=== PATIENT | female | born 1955 | race African-American/Black ===

== ENCOUNTER 2018-04-03 10:13 | Emergency (ER) | payer MEDICARE, MEDICAID ==
--- NOTE | 2018-04-03 12:08 | RAD ---
3 VIEWS RIGHT SHOULDER: Date: 04/03/18 COMPARISON: None. HISTORY: Right shoulder pain for 2 months. FINDINGS: Three views of the right shoulder show no evidence of acute fracature or dislocation. No degenerative changes are seen. Visualized right thorax is unremarkable. IMPRESSION: Unremarkable exam. POS: [facility]
== END 2018-04-03 12:06 | disposition home or self-care (01) ==
LOC: ERS 10:13
DX: S46.911A Strain of unspecified muscle, fascia and tendon at shoulder and upper arm level, right arm, initial encounter (principal); I10 Essential (primary) hypertension; F17.200 Nicotine dependence, unspecified, uncomplicated; Z71.6 Tobacco abuse counseling; X58.XXXA Exposure to other specified factors, initial encounter

== ENCOUNTER 2018-08-17 14:51 | Emergency (ER) | payer MEDICARE, MEDICAID ==
[2018-08-17 15:42] LABS: #Eosinphils 0.1 thou/uL (0.0-0.7); #Lymphocytes 1.5 thou/uL (1.20-3.40); #Monocytes 0.4 thou/uL (0.11-0.59); #Neutrophils 10.6 thou/uL (1.40-6.50); %Basophils 0.2 % (0.0-1.0); %Eosinophils 0.7 % (0.0-10.0); %Monocytes 3.1 % (0.0-10.0); Hemoglobin 13.4 g/dL (12.0-16.0); Mean Corpuscular HGB CONC 35.1 g/dL (32.0-36.0); Mean Corpuscular Hemoglobin 29.5 pg (27.0-31.0); Mean Corpuscular Volume 84.1 fL (78.0-98.0); Mean Platelet Volume 7.6 fL (7.4-10.4); Platelet Count 266 thou/uL (130-400); RBC Distribution Width 12.3 % (11.5-14.5); Red Blood Cell (RBC) Count 4.55 mill/uL (4.20-5.40); White Blood Cell (WBC) Count 12.7 thou/uL (4.8-10.8)
--- NOTE | 2018-08-17 15:52 | RAD ---
CHEST 2 VIEWS: Date: 08/17/11 HISTORY: Cough. COMPARISON: None. FINDINGS: Lungs are clear. No pneumothorax or effusion. Cardiac silhouette and mediastinal contours within norm al limits. IMPRESSION: No acute intrathoracic abnormality. POS: [facility]
[2018-08-17 16:06] LABS: CKMB 0.5 ng/mL (0-6.6); Troponin I Less than 0.010 ng/mL (< 0.028)
[2018-08-17 16:08] LABS: ALT (SGPT) 18 U/L (8-55); AST (SGOT) 17 U/L (5-34); Albumin 4.7 g/dL (3.4-4.8); Alkaline Phosphatase 118 U/L (40-150); Anion Gap 13 mmol/L (10-20); BUN (Urea Nitrogen) 15 mg/dL (9.8-20.1); Bilirubin, Total 0.8 mg/dL (0.2-1.2); Calc. Creatinine Clearance 0 mL/min (70-130); Calcium 10.7 mg/dL (7.8-10.44); Carbon Dioxide 26 mmol/L (23-31); Chloride 101 mmol/L (98-107); Estimated GFR-MDRD 83; Glucose 161 mg/dL (80-115); Potassium 3.4 mmol/L (3.5-5.1); Protein, Total 8.7 g/dL (6.0-8.3); Sodium 137 mmol/L (136-145)
[2018-08-17] MEDS ORDERED: Ketorolac Tromethamine 30 MG/ML VIAL ONE (16:11)
[2018-08-17 17:27] LABS: Bilirubin Negative (Negative); Blood, Urine Trace (Negative); Clarity CLEAR (Clear); Glucose, Urine (Dipstick) Negative (Negative); Leukocyte Negative (Negative); Nitrite Negative (Negative); Protein, Urine (Dipstick) Negative (Neg-Trace)
[2018-08-17 17:30] LABS: Bacteria/HPF None Seen HPF (None Seen); Hyaline Casts/LPF 0-3 HYALINE CAST LPF (0-3 Hyaline); Pathc Cast-AUWi Flag 0.14 (0-2.49); Squamous Epithelial 0-3 HPF (0-3); WBC/HPF None Seen HPF (0-3)
== END 2018-08-17 18:21 | disposition home or self-care (01) ==
LOC: ERS 14:51
DX: B34.9 Viral infection, unspecified (principal); I10 Essential (primary) hypertension; F17.210 Nicotine dependence, cigarettes, uncomplicated
CPT/HCPCS: 71046; 80053; 81003; 81015; 82553; 83880; 84484; 85025; 87804; 94640; 96361; 96374; J1885

== ENCOUNTER 2020-02-09 14:59 | Emergency (ER) | payer MEDICARE, MEDICAID, OTHER ==
--- NOTE | 2020-02-09 15:58 | RAD ---
Exam: Chest one view HISTORY:Chest pain. Cough. Comparison: 08/04/2005, 08/17/2018 FINDINGS: Cardiac silhouette: Normal Aorta: Unremarkable Pulmonary vessels: Normal Costophrenic angles: Clear LUNGS: No masses or consolidation. Pneumothorax: None Osseous abnormalities: None IMPRESSION: No acute cardiopulmonary process.
[2020-02-10 12:06] LABS: SARS-CoV-2 MS2 Positive; SARS-CoV-2 N Gene Positive; SARS-CoV-2 S Gene Positive; SARS-CoV-2 orf1ab Positive
== END 2020-02-09 16:10 | disposition home or self-care (01) ==
LOC: ERS 14:59
DX: U07.1 COVID-19 (principal); J06.9 Acute upper respiratory infection, unspecified; I10 Essential (primary) hypertension; F17.210 Nicotine dependence, cigarettes, uncomplicated
CPT/HCPCS: 71045; 87081; 87430; 87804 ×2; 99283; U0002; 87635; U0003

== ENCOUNTER 2020-02-11 18:42 | Observation (INO) | payer MEDICARE, MEDICAID, OTHER ==
[2020-02-11 19:24] LABS: #Lymphocytes 1.7 thou/uL (1.20-3.40); #Monocytes 0.3 thou/uL (0.11-0.59); #Neutrophils 3.6 thou/uL (1.40-6.50); %Basophils 0.4 % (0.0-1.0); %Eosinophils 0.1 % (0.0-10.0); %Lymphocytes 29.4 % (21.0-51.0); %Monocytes 5.4 % (0.0-10.0); %Neutrophils 64.8 % (42.0-75.0); Hemoglobin 12.5 g/dL (12.0-16.0); Mean Corpuscular HGB CONC 33.3 g/dL (32.0-36.0); Mean Corpuscular Hemoglobin 27.9 pg (27.0-31.0); Mean Corpuscular Volume 83.6 fL (78.0-98.0); Mean Platelet Volume 8.5 fL (7.4-10.4); Platelet Count 227 thou/uL (130-400); RBC Distribution Width 12.9 % (11.5-14.5); Red Blood Cell (RBC) Count 4.49 mill/uL (4.20-5.40); White Blood Cell (WBC) Count 5.6 thou/uL (4.8-10.8)
[2020-02-11] MEDS ORDERED: Acetaminophen 500 MG TAB ONE (19:30)
[2020-02-11 19:32] LABS: Lactic Acid 1.5 mmol/L (0.5-2.2)
[2020-02-11 19:45] LABS: ALT (SGPT) 16 U/L (8-55); AST (SGOT) 23 U/L (5-34); Albumin 4.5 g/dL (3.4-4.8); Alkaline Phosphatase 133 U/L (40-110); Anion Gap 15 mmol/L (10-20); BUN (Urea Nitrogen) 6 mg/dL (9.8-20.1); Bilirubin, Total 0.6 mg/dL (0.2-1.2); Calc. Creatinine Clearance 0 mL/min (70-130); Calcium 9.7 mg/dL (7.8-10.44); Carbon Dioxide 25 mmol/L (23-31); Chloride 99 mmol/L (98-107); Estimated GFR-MDRD 74; Globulin 4.1 g/dL (2.4-3.5); Glucose 166 mg/dL (80-115); Protein, Total 8.6 g/dL (6.0-8.3); Sodium 136 mmol/L (136-145)
--- NOTE | 2020-02-11 19:46 | RAD ---
CHEST ONE VIEW: 02/11/20 HISTORY: Cough and shortness of breath. COMPARISON: Radiograph 02/09/2020. FINDINGS: Faint peripheral increased patchy opacities. No pneumothorax. No effusion. Heart size upper limits of normal. No acute osseous abnormality. IMPRESSION: Commonly reported imaging findings of COVID-19 pneumonia, very mild. POS: [facility]
[2020-02-11 19:47] LABS: Potassium 2.8 mmol/L (3.5-5.1)
[2020-02-11 20:10] LABS: CKMB 0.3 ng/mL (0-6.6)
[2020-02-11] MEDS ORDERED: Potassium Chloride 20 MEQ TAB ONE (21:29)
[2020-02-11] MEDS ORDERED: Azithromycin 250 MG TAB ONE (21:29)
[2020-02-11] MEDS ORDERED: Aspirin Chewable 81 MG TAB ONE (21:29)
[2020-02-11] MEDS ORDERED: Hydroxychloroquine Sulfate 200 MG TAB PO SCH (21:30)
--- NOTE | 2020-02-11 22:11 | PDOC.FPRHP ---
- History of Present Illness Chief Complaint: Cough, Indeterminent troponin History of Present Illness: Pt is a 65 yo F w/ PMH of CAD and HTN who presents to ED for CC of some mild cp and cough. She was seen two days prior with one week history of dry cough and was otherwise well. She was screened for COVID19 at that time and she has resulted positive. In ED her vital signs are stable less her temp of 102.5. Initial lab evaluation shows mildly elevated troponin. Otherwise she reports mild dry cough and some chest discomfort that has resolved with tylenol. She currently denies any chest pain. She also reports some associated diarrhea. ED Course: Potassium, Plaquenil, and azithromycin - Allergies/Adverse Reactions Allergies Allergy/AdvReac Type Severity Reaction Status Date / Time Penicillins Allergy Verified 02/11/20 23:29 Sulfa (Sulfonamide Allergy Verified 02/11/20 23:29 Antibiotics) - Home Medications Medication Instructions Recorded Confirmed Type Azithromycin 250 mg PO DAILY 02/11/20 02/11/20 History Irbesartan/Hydrochlorothiazide 1 each PO DAILY 02/11/20 02/11/20 History [Irbesartan-Hctz 300-12.5 mg Tb] Multivitamin [Multivitamins] 1 cap PO DAILY 02/11/20 02/11/20 History Pregabalin 50 mg PO DAILY 02/11/20 02/11/20 History Rosuvastatin [Crestor] 20 mg PO DAILY 02/11/20 02/11/20 History Ventolin HFA Inhaler 2 puff INH QID PRN 02/11/20 02/11/20 History Benzonatate [Tessalon] 100 mg PO TIDPRN PRN #60 cap 02/12/20 Rx Guaifenesin DM 100-10 [Robitussin 15 ml PO Q4H PRN #120 ml 02/12/20 Rx DM] - History PMHx: HTN PSHx: Hyster FHx: None Social: Denies alcohol tobacco and drug use - Review of Systems General: reports: fever/chills, fatigue Eyes: denies: eye pain, vision changes ENT: reports: nasal congestion. denies: rhinorrhea Respiratory: reports: cough, congestion. denies: shortness of breath Cardiovascular: reports: chest pain. denies: palpitation, edema Gastrointestinal: denies: nausea, vomiting, diarrhea, constipation, abdominal pain Genitourinary: denies: dysuria Skin: denies: rashes Musculoskeletal: denies: swelling Neurological: denies: numbness, syncope, weakness Psychological: denies: anxiety - Vital signs BP: 161/100 HR: 92 RR: 20 Tmax: 102.5 Pox: 98% on RA Wt: 61.23Kg - Physical Exam Constitutional: NAD, awake, alert and oriented, well developed HEENT: normocephalic and atraumatic, PERRLA, EOMI, conjunctiva clear, grossly normal vision, grossly normal hearing Neck: supple, FROM, trachea midline, no LAD Chest: no-tender to palpation Heart: RRR, normal S1/S2, no murmurs/rubs/gallops, pulses present, no edema Lungs: CTAB, no respiratory distress, good air movement, no rales/rhonchi, no wheezing, no retractions Abdomen: soft, non-tender, bowel sounds present, no masses/distention Neurological: no focal deficit Skin: no rash/lesions, good turgor, capillary refill <2 seconds Heme/Lymphatic: no petechia Psychiatric: normal mood and affect FMR H&P: Results - Labs Result Diagrams: 02/12/20 04:39 02/12/20 04:39 Lab results: WBC 5.6 thou/uL (4.8-10.8) 02/11/20 19:11 Hgb 12.5 g/dL (12.0-16.0) 02/11/20 19:11 Hct 37.5 % (36.0-47.0) 02/11/20 19:11 MCV 83.6 fL (78.0-98.0) 02/11/20 19:11 Plt Count 227 thou/uL (130-400) 02/11/20 19:11 Neutrophils % 64.8 % (42.0-75.0) 02/11/20 19:11 Sodium 136 mmol/L (136-145) 02/11/20 19:11 Potassium 2.8 mmol/L (3.5-5.1) L* 02/11/20 19:11 Chloride 99 mmol/L (98-107) 02/11/20 19:11 Carbon Dioxide 25 mmol/L (23-31) 02/11/20 19:11 BUN 6 mg/dL (9.8-20.1) L 02/11/20 19:11 Creatinine 0.92 mg/dL (0.6-1.1) 02/11/20 19:11 Glucose 166 mg/dL (80-115) H 02/11/20 19:11 Lactic Acid 1.5 mmol/L (0.5-2.2) 02/11/20 19:11 Calcium 9.7 mg/dL (7.8-10.44) 02/11/20 19:11 Total Bilirubin 0.6 mg/dL (0.2-1.2) 02/11/20 19:11 AST 23 U/L (5-34) 02/11/20 19:11 ALT 16 U/L (8-55) 02/11/20 19:11 Alkaline Phosphatase 133 U/L (40-110) H 02/11/20 19:11 CK-MB (CK-2) 0.3 ng/mL (0-6.6) 02/11/20 19:11 Serum Total Protein 8.6 g/dL (6.0-8.3) H 02/11/20 19:11 Albumin 4.5 g/dL (3.4-4.8) 02/11/20 19:11 - EKG Interpretation EK BPM, t wave inversion inferior leads, No ST changes - Radiology Interpretation Chest x-ray Status: image reviewed by me, report reviewed by me (Changes c/w covid, mild) FMR H&P: A/P - Problem List (1) COVID-19 virus infection Status: Acute Code(s): U07.1 - COVID-19 (2) Elevated troponin Status: Acute Code(s): R79.89 - OTHER SPECIFIED ABNORMAL FINDINGS OF BLOOD CHEMISTRY (3) Hypertension Status: Acute Code(s): I10 - ESSENTIAL (PRIMARY) HYPERTENSION - Plan 1) COVID Pna - check inflammatory markers - cont azithromycin - cosnider continuing plaquenil, although no mod to severe criteria currently met - monitor vitals - supportive care with tylenol for fever and albuterol PRN for wheezing alongside cough suppresent PO 2) Indeterminant troponins - no chest pain at this time - trend - likely trop leak from systemic illness - consider OP stress when illness resolves 3) Hypokalemia - replace - check mag Dispo: Stable, admit tele obs and trend trops. Monitor for worsening resp status. Cont Supportive care. FMR H&P: Upper Level - Plan Date/Time: 02/11/202208 Upper Level H&P Addendum - Attending - Attending Attestation Date/Time: 02/15/201803 I personally evaluated the patient and discussed the management with Dr. Fermin on 02/11/20. I agree with the History, Examination, Assessment and Plan documented above with any addition or exceptions noted below. 65 y.o. BF with h/o HTN, recent COVID positive here with cough and mild CP found to have indeterminate troponin. Will R/o IA. Pt. states she's not had any contacts and has only communicated with family through her screen door, so not sure how she contracted COVID. SaO2 on RA>95% and no dyspnea but dry cough persists.
[2020-02-11 23:19] VITALS: BMI 26.7
[2020-02-11 23:45] LABS: Troponin I 0.027 ng/mL (< 0.028)
[2020-02-12] MEDS ORDERED: Non-Formulary Item 1 EACH (Ventolin Hfa Inhaler [Ventolin Hfa Inhaler] 2 PUFF) INH PRN (00:27)
[2020-02-12] MEDS ORDERED: Acetaminophen 325 MG TAB PO PRN (00:28)
[2020-02-12] MEDS ORDERED: Ondansetron PF 4 MG/2 ML Vial IVP PRN (00:28)
[2020-02-12] MEDS ORDERED: Ondansetron ODT 4 MG TAB PO PRN (00:28)
[2020-02-12] MEDS ORDERED: Guaifenesin DM 100-10/5 ML UDCUP PO PRN (00:28)
[2020-02-12] MEDS ORDERED: Calcium Carbonate 500 MG ChewTAB PO PRN (00:28)
[2020-02-12] MEDS ORDERED: Acetaminophen 650 MG Suppository PR PRN (00:28)
[2020-02-12] MEDS ORDERED: Benzonatate 100 MG CAP PO PRN (00:35)
[2020-02-12] MEDS ORDERED: Potassium Chloride 20 MEQ TAB PO SCH ×2 (00:45→08:00)
[2020-02-12] MEDS ORDERED: Albuterol 200 PUFF (6.7GM INHALER) INH PRN (00:54)
[2020-02-12 04:56] LABS: #Lymphocytes 1.6 thou/uL (1.20-3.40); #Monocytes 0.4 thou/uL (0.11-0.59); #Neutrophils 3.7 thou/uL (1.40-6.50); %Basophils 0.8 % (0.0-1.0); %Eosinophils 0.2 % (0.0-10.0); %Lymphocytes 27.2 % (21.0-51.0); %Monocytes 6.8 % (0.0-10.0); %Neutrophils 65.1 % (42.0-75.0); Hemoglobin 11.6 g/dL (12.0-16.0); Mean Corpuscular HGB CONC 34.1 g/dL (32.0-36.0); Mean Corpuscular Hemoglobin 28.3 pg (27.0-31.0); Mean Corpuscular Volume 83.1 fL (78.0-98.0); Mean Platelet Volume 8.6 fL (7.4-10.4); Platelet Count 201 thou/uL (130-400); Red Blood Cell (RBC) Count 4.11 mill/uL (4.20-5.40); White Blood Cell (WBC) Count 5.7 thou/uL (4.8-10.8)
[2020-02-12 05:14] LABS: Anion Gap 12 mmol/L (10-20); BUN (Urea Nitrogen) 7 mg/dL (9.8-20.1); CRP (Inflammatory) 2.51 mg/dL (= or < 0.5); Calc. Creatinine Clearance 66 mL/min (70-130); Calcium 9.3 mg/dL (7.8-10.44); Carbon Dioxide 26 mmol/L (23-31); Chloride 106 mmol/L (98-107); Estimated GFR-MDRD 83; Glucose 167 mg/dL (80-115); Magnesium 1.8 mg/dL (1.6-2.6); Potassium 4.2 mmol/L (3.5-5.1); Sodium 140 mmol/L (136-145)
--- NOTE | 2020-02-12 07:00 | PDOC.FM ---
- Subjective Subjective: NAEO. Patient was resting comfortably in bed. She states that her SOB and cough have improved. She reports no other episodes of chest pain. She states she would feel ready to go home later today. - Objective MAR Reviewed: Yes Vital Signs & Weight: Vital Signs (12 hours) Temp Pulse Resp BP Pulse Ox 02/12/20 04:00 97.7 F 61 18 157/72 H 99 02/11/20 22:42 98.9 F 67 22 H 137/100 H 97 Weight Weight 62.051 kg I&O: 02/10/20 02/11/20 02/12/20 06:59 06:59 06:59 Intake Total 820 Output Total 350 Balance 470 Result Diagrams: 02/12/20 04:39 02/12/20 04:39 Phys Exam - Physical Examination Constitutional: NAD HEENT: moist MMs, sclera anicteric Neck: supple, full ROM Respiratory: clear to auscultation bilateral Cardiovascular: RRR Gastrointestinal: soft Musculoskeletal: no edema Neurological: non-focal, moves all 4 limbs Psychiatric: normal affect Skin: no rash, normal turgor, cap refill <2 seconds Dx/Plan (1) COVID-19 virus infection Code(s): U07.1 - COVID-19 Status: Acute (2) Elevated troponin Code(s): R79.89 - OTHER SPECIFIED ABNORMAL FINDINGS OF BLOOD CHEMISTRY Status : Acute (3) Hypertension Code(s): I10 - ESSENTIAL (PRIMARY) HYPERTENSION Status: Acute - Plan Plan: COVID PNA Patient with positive test 2 days ago. Symptoms of chest pain/SOB. - Elevated LDH, CRP, Ddimer, ferritin - Continue azithromycin; Plaquenil discontinued as no mod to severe criteria currently met - On ppx lovenox - Monitor vitals, satting well on RA, not requiring supplemental oxygen - Supportive care with tylenol for fever and albuterol PRN for wheezing with cough suppressant PO. Avoid NSAIDs. Indeterminant troponins No chest pain at this time. Likely Trop leak from systemic illness. Chest pain at home likely due to chronic cough associated with PNA. - Initial Trop 0.032 -> 0.027 -> 0.03 -> 0.027. - Nitro PRN - Consider OP stress when illness resolves and if symptoms persist Hypokalemia - K 2.8 on admission -> 4.2, Continue to monitor, replace as needed Dispo: Stable, dc later today PCP: [id number] - [facility] DVT: lovenox Code: FULL Case discussed with Dr. Mcknight Addendum - Attending - Attending Attestation Date/Time: 02/12/20 [id number] I personally evaluated the patient and discussed the management with Dr. Wan I agree with the History, Examination, Assessment and Plan documented above with any addition or exceptions noted below - Patient without complaints. Denies any SOB. Cough improved. Afebrile VSS. A/P: 1) Chest pain- troponins negative; suspect pain is related to the cough. 2) COVID-19 - no O2 requirement ; mild symptoms. Plan to D/c home if continues t do well.
[2020-02-12] MEDS ORDERED: Pregabalin 50 MG CAP PO SCH (09:00)
[2020-02-12] MEDS ORDERED: Hydrochlorothiazide 25 MG TAB PO SCH (09:00)
[2020-02-12] MEDS ORDERED: Multivit, Therapeutic 1 TAB PO SCH (09:00)
[2020-02-12] MEDS ORDERED: Prevnar 13-Val Conj/PF 0.5 ML SYRINGE IM ONE (09:00)
[2020-02-12] MEDS ORDERED: Azithromycin 250 MG TAB PO SCH (09:00)
[2020-02-12] MEDS ORDERED: Enoxaparin Sodium 40 MG/0.4 ML SYRINGE SC SCH (09:00)
[2020-02-12] MEDS ORDERED: Losartan 25 MG TAB PO SCH (09:00)
[2020-02-12 12:30] VITALS: BP 173/85; TEMP 98.7
--- NOTE | 2020-02-13 06:00 | DIS ---
DATE OF ADMISSION: 02/11/2020 DATE OF DISCHARGE: 02/12/2020 RESIDENT: Karly Wan MD ADMITTING ATTENDING: Raman Rinaldi MD DISCHARGE ATTENDING: Petra Mcknight MD CONSULTS: None. PROCEDURES: None. DISCHARGE MEDICATIONS: 1. Tessalon 100 mg oral 3 times daily as needed. 2. Robitussin 15 mL oral every 4 hours as needed. 3. Multivitamin one capsule oral daily. 4. Ventolin 2 puffs inhalation 4 times daily as needed. 5. Pregabalin 50 mg oral daily. 6. Irbesartan/hydrochlorothiazide 300-12.5 mg one each oral daily. 7. Crestor 20 mg oral daily. 8. Azithromycin 250 mg oral daily for 4 more doses. DISCONTINUED MEDICATIONS: None. PRIMARY DIAGNOSES: 1. COVID pneumonia. 2. Indeterminate troponins. 3. Hypokalemia. SECONDARY DIAGNOSES: 1. CAD 2. HTN HISTORY OF PRESENT ILLNESS/HOSPITAL COURSE: This is a 65-year-old female with past medical history of CAD and hypertension, who presented to the ER with a chief complaint of mild chest pain and cough. She had been seen 2 days prior with a 1-week history of a dry cough, but was otherwise well. She was screened for COVID-19 at that time and had resulted positive. In the ER, the patient was given potassium, Plaquenil, and azithromycin for COVID pneumonia. She never required any supplemental oxygen. The patient was admitted to the telemetry floor as her troponins were found to be mildly elevated. The patient was also found to have a fever of 102.5 in the ER and was given Tylenol with resolution of fever. The patient also had a potassium of 2.8 and was given supplementation. EKG showed no changes. The patient was continued on her azithromycin for treatment of her COVID pneumonia. Plaquenil was not continued as the patient did not meet moderate to severe criteria. The patient's vital signs were monitored throughout her stay. She did not repeat fever and she never required supplemental oxygen. The patient's troponins downtrended throughout her stay and to consider outpatient stress once this itself resolves. The patient's potassium came back to normal levels. The patient was discharged in stable condition. DISCHARGE INSTRUCTIONS: 1. Location: Home. 2. Activity: Ad lashaun. 3. Diet: Heart healthy. 4. Follow up with PCP, Dr. Dex Landaverde within 7 days. Job ID: [id number] [id number]
== END 2020-02-12 12:38 | disposition home or self-care (01) ==
LOC: ERS 18:42 → 2SW 20:47
PROVIDERS: ADMIT Family Medicine; ATTEND Family Medicine
DX: U07.1 COVID-19 (principal); J12.89 Other viral pneumonia; R79.89 Other specified abnormal findings of blood chemistry; E87.6 Hypokalemia; I25.10 Atherosclerotic heart disease of native coronary artery without angina pectoris; I10 Essential (primary) hypertension; Z79.899 Other long term (current) drug therapy; Z88.0 Allergy status to penicillin; Z88.2 Allergy status to sulfonamides
CPT/HCPCS: 71045; 80048; 80053; 82553; 82728; 83605; 83615; 83735; 84484 ×4; 85025 ×2; 85379; 86140; 87040; 93005; 96360; 96361; 96372; 99285; G0378 ×3; 36415; J1650

== ENCOUNTER 2025-08-19 19:48 | Emergency (ER) | payer MEDICARE, MEDICAID, OTHER ==
[2025-08-19] MEDS ORDERED: Acetaminophen 500 MG TAB ONE (20:24)
[2025-08-19 20:38] LABS: #Basophils 0.03 10x3/uL (0.0-0.2); #Eosinophils 0.04 10x3/uL (0.0-0.7); #Monocytes 0.62 10x3/uL (0.11-0.59); #Neutrophils 3.82 10x3/uL (1.40-6.50); %Basophils 0.5 % (0.0-1.0); %Eosinophils 0.6 % (0.0-10.0); %Lymphocytes 31.0 % (21.0-51.0); %Monocytes 9.4 % (0.0-10.0); %Neutrophils 57.9 % (42.0-75.0); Hematocrit 34.0 % (36.0-47.0); Hemoglobin 11.4 g/dL (12.0-16.0); Mean Corpuscular Hemoglobin 27.4 pg (27.0-31.0); Mean Corpuscular Volume 81.7 fL (78.0-98.0); Platelet Count 267 10x3/uL (130-400); Red Blood Cell (RBC) Count 4.16 mill/uL (4.20-5.40); White Blood Cell (WBC) Count 6.59 10x3/uL (4.8-10.8)
[2025-08-19 20:56] LABS: ALT (SGPT) 15 U/L (Less than 34); AST (SGOT) 19 U/L (11-34); Albumin 4.3 g/dL (3.1-4.5); Alkaline Phosphatase 99 U/L (40-110); Anion Gap 16 mmol/L (10-20); BUN (Urea Nitrogen) 15 mg/dL (9.8-20.1); Bilirubin, Total 0.4 mg/dL (0.3-1.2); Calc. Creatinine Clearance 0 mL/min (70-130); Calcium 9.8 mg/dL (7.8-10.44); Carbon Dioxide 24 mmol/L (23-31); Chloride 104 mmol/L (98-107); Globulin 3.3 g/dL (2.4-3.5); Glucose 103 mg/dL (80-115); Potassium 3.7 mmol/L (3.5-5.1); Sodium 140 mmol/L (136-145)
== END 2025-08-19 23:10 ==
LOC: ERS 19:48
DX: S01.111A Laceration without foreign body of right eyelid and periocular area, initial encounter (principal); I10 Essential (primary) hypertension; F17.210 Nicotine dependence, cigarettes, uncomplicated; W01.10XA Fall on same level from slipping, tripping and stumbling with subsequent striking against unspecified object, initial encounter; Y93.89 Activity, other specified
CPT/HCPCS: 70450; 72125; 80053; 85025